=== PATIENT | male | born 1960 | race Caucasian/White ===

== ENCOUNTER 2018-03-20 05:58 | Day surgery (SDC) | payer BC ==
[2018-03-19 10:48] VITALS: BMI 27.3
--- NOTE | 2018-03-20 00:20 | HP ---
DATE OF ADMISSION: 03/20/2018 SHORT-STAY HISTORY AND PHYSICAL HISTORY OF PRESENT ILLNESS: This is a 57-year-old male who comes for colonoscopy with a hi story of colon polyp. The patient has no specific GI symptoms. He also has family history of colon cancer. ALLERGIES: None. SOCIAL HISTORY: The patient does not smoke, but drinks alcohol socially. MEDICAL ILLNESSES: 1. Hypertension. 2. Bronchial asthma. 3. Seasonal allergies. 4. Hyperlipidemia. 5. Colon polyp. PHYSICAL EXAMINATION: VITAL SIGNS: Pulse is 70, blood pressure 130/70. HEENT: Conjunctivae clear. NECK: Supple. CARDIOVASCULAR SYSTEM: First and second heart sounds normal. LUNGS: Clear to auscultation. ABDOMEN: Soft to palpate. No organomegaly. No tenderness. No masses. ADMITTING DIAGNOSIS: Colon polyp. PLAN: Followup colonoscopy.
--- NOTE | 2018-03-20 08:38 | OP ---
DATE OF PROCEDURE: 03/20/2008. SURGEON: Ousmane Miner M.D. OPERATIVE PROCEDURE: Colonoscopy. PREOPERATIVE DIAGNOSIS: A 57-year-old male with history of colon polyp, undergoing colonos copy. POSTOPERATIVE DIAGNOSIS: Hemorrhoids. Otherwise, normal colon. The patient had some retained stool at the cecum, right colon, which was washed out. PROCEDURE IN DETAIL: The patient was placed on his left lateral position and was given sedation by [facility]. A rectal exam was done before the scope was advanced into the rectum. No lesi on felt on rectal exam. A [employer] video colonoscope was introduced into the rectum and also into the cecum. The prep was good. He does have some retained stool over the upper and lower area, cecum, ri ght colon. This was washed out. The mucosa appears normal throughout the colon with normal vascular pattern. The appendiceal orifice, ileocecal valve, cecum, no pathology. The ascending colon, hepat ic flexure, transverse colon, descending colon, and sigmoid colon, no lesions. Retroflexion of scope in the rectum revealed hemorrhoids. DISCHARGE PLANNING: A 57-year-old male who came for a colonoscopy with history of colon po lyp. The colonoscopy is ____. DISCHARGE RECOMMENDATIONS: 1. The patient was advised to call me if he develops abdominal pain, hematochezia. 2. In the absence of any of above symptoms he is to come back to me in 2 weeks. 3. Repeat colonoscopy in 5 years.
[2018-03-20] MEDS ORDERED: Lidocaine 1% PF 5 ML VIAL ONE (13:41)
[2018-03-20] MEDS ORDERED: PROPOFOL 200 MG/20 ML VIAL ONE (13:41)
== END 2018-03-20 09:05 | disposition home or self-care (01) ==
LOC: SDC 05:58 → EEVIPCON 05:58 → SDC 09:05
PROVIDERS: ATTEND Internal Medicine Gastroenterology
PROC: 0DJD8ZZ Inspection of Lower Intestinal Tract, Via Natural or Artificial Opening Endoscopic (ICD-10-PCS; principal; 2018-03-20)
DX: Z12.11 Encounter for screening for malignant neoplasm of colon (principal); K64.4 Residual hemorrhoidal skin tags; K64.9 Unspecified hemorrhoids; I10 Essential (primary) hypertension; J45.909 Unspecified asthma, uncomplicated; E78.5 Hyperlipidemia, unspecified; Z86.010 Personal history of colon polyps; Z80.0 Family history of malignant neoplasm of digestive organs; Z79.899 Other long term (current) drug therapy